=== PATIENT | male | born 1930 | race Caucasian/White ===

== ENCOUNTER 2017-11-29 06:40 | Day surgery (SDC) | payer BC ==
[~2017-11-29] VITALS: Ht 167.6 cm; Wt 76.7 kg
[~2017-11-29 06:40] MED LIST: ASPI1TAB31 PO; METO25TA35 PO; OMEP40CA6 PO; TELM1TAB3 PO
[2017-11-29 07:26] VITALS: BP 118/77
[2017-11-29] MEDS ORDERED: LACTATED RINGERS 1,000 ML IV SCH (07:28)
[2017-11-29] MEDS ORDERED: LIDOCAINE-MPF 1%, 2ML INFIL ONE (07:30)
[2017-11-29] MEDS ORDERED: LABETALOL 5MG/ML, 20ML IV PRN (08:30)
[2017-11-29] MEDS ORDERED: DIPHENHYDRAMINE 50 MG/ML, 1ML IVPush PRN (08:30)
[2017-11-29] MEDS ORDERED: FENTANYL PF 100 MCG/2ML IV PRN (08:30)
[2017-11-29] MEDS ORDERED: hydrALAzine 20 MG/ML, 1ML IV PRN (08:30)
[2017-11-29] MEDS ORDERED: MEPERIDINE/PF 25MG/0.5ML IVPush PRN (08:30)
[2017-11-29] MEDS ORDERED: FENTANYL PF 100 MCG/2ML ONE (08:38)
[2017-11-29] MEDS ORDERED: PROPOFOL 10 MG/ML, 20ML ONE ×3 (10:14→10:42)
== END 2017-11-29 12:10 | disposition home or self-care (01) ==
LOC: OUT 06:40
PROVIDERS: ATTEND Internal Medicine Geriatric Medicine
DX: K22.2 Esophageal obstruction (principal); K44.9 Diaphragmatic hernia without obstruction or gangrene; K21.9 Gastro-esophageal reflux disease without esophagitis; K31.89 Other diseases of stomach and duodenum; I10 Essential (primary) hypertension
CPT/HCPCS: 43239; 43249; 88305; 93005; C1725; J2704; J3010; J3490; J7120